=== PATIENT | male | born 2000 | race Caucasian/White ===

== ENCOUNTER 2025-05-11 23:12 | Emergency (ER) | payer MEDICAID ==
[~2025-05-11] VITALS: Ht 172.7 cm; Wt 61.4 kg
[2025-05-11 23:27] VITALS: TEMP 97.5
[2025-05-12 00:52] LABS: GLUCOMETER DEV NAME(LOC) ER.7; GLUCOSE,POINT OF CARE 247 MG/DL (70-110)
[2025-05-12 00:54] LABS: BASOPHILS % (AUTO) 0.5 % (0.0-2.0); EOSINOPHILS % (AUTO) 0.8 % (1.0-6.0); HEMATOCRIT 40.2 % (41-53); HEMOGLOBIN 13.4 g/dL (13.5-17.5); LYMPHOCYTES # (AUTO) 2.1 K/uL (1.0-4.8); LYMPHOCYTES % (AUTO) 26.1 % (22.0-44.0); MEAN CORPUSCULAR HEMOGLOBIN 30.2 pg (26.0-34.0); MEAN CORPUSCULAR HGB CONC 33.4 G/dL (31.0-37.0); MEAN CORPUSCULAR VOLUME 91 fL (80-100); MONOCYTES # (AUTO) 0.4 K/uL (0.1-1.0); MONOCYTES % (AUTO) 4.7 % (2.0-9.0); NEUTROPHILS # (AUTO) 5.4 K/uL (1.8-7.7); NEUTROPHILS % (AUTO) 67.9 % (40.0-70.0); PLATELET COUNT (AUTO) 201 K/uL (150-450); RED BLOOD CELL COUNT(AUTO) 4.44 MIL/uL (4.50-5.90); RED CELL DISTRIBUTION WIDTH 13.3 % (11.5-14.5)
[2025-05-12 01:01] LABS: ANION GAP 6 mmol/L (8-16); CALCIUM, TOTAL 8.5 mg/dL (8.8-10.5); CARBON DIOXIDE 28 mmol/L (22-29); CHLORIDE 102 mmol/L (98-107); CREATININE 0.73 mg/dL (0.60-1.30); GLOMERULAR FILTR. RATE CALC > 60 mL/min (>60); GLUCOSE,RANDOM 262 mg/dL (70-110); POTASSIUM 4.1 mmol/L (3.5-5.1); SODIUM SERUM 136 mmol/L (136-145); UREA NITROGEN, BLOOD 16 mg/dL (7-18)
[2025-05-12 01:11] LABS: ALBUMIN 3.6 g/dL (3.4-5.0); BILIRUBIN,DIRECT 0.1 mg/dL (0.00-0.20); BILIRUBIN,TOTAL 0.4 mg/dL (0.1-1.0); TOTAL PROTEIN, SERUM 6.6 g/dL (6.4-8.2)
[2025-05-12 02:01] LABS: APPEARANCE,URINE CLEAR (CLEAR); BILIRUBIN,URINE NEGATIVE (NEGATIVE); COLOR,URINE LIGHT YELLOW (YELLOW); GLUCOSE, URINE (UA) >=1000 mg/dL (NEGATIVE); LEUKOCYTE ESTERASE ,URINE NEGATIVE (NEGATIVE); NITRATE,URINE NEGATIVE (NEGATIVE); OCCULT BLOOD,URINE NEGATIVE (NEGATIVE); PH,URINE 6.5 (5.0-8.0); PROTEIN,URINE NEGATIVE (NEGATIVE); SPECIFIC GRAVITIY, URINE 1.047 (1.003-1.030); UROBILINOGEN,URINE <=1.0 mg/dL (<=1.0)
[2025-05-12 02:02] LABS: BACTERIA,URINE None Seen /HPF (None Seen); RBC,URINE None Seen /HPF (0-2); SQUAMOUS EPITHELIAL CELL,UR Rare /LPF (None Seen); WBC,URINE None Seen /HPF (0-5)
[2025-05-12 03:18] VITALS: BP 94/46; PULSE 54; RESP 17; O2SAT 97
[2025-05-12] MEDS ORDERED: POLY17PO62 PO (04:36)
== END 2025-05-12 06:46 | disposition home or self-care (01) ==
LOC: EMS 23:12
DX: R11.2 Nausea with vomiting, unspecified (principal); K59.00 Constipation, unspecified; E11.9 Type 2 diabetes mellitus without complications; E78.00 Pure hypercholesterolemia, unspecified; F17.210 Nicotine dependence, cigarettes, uncomplicated; F15.90 Other stimulant use, unspecified, uncomplicated
CPT/HCPCS: 74018; 80048; 80076; 81001; 82962; 83690; 85025; 99284; 36415-L1; 36415-TC

== ENCOUNTER 2025-06-16 22:06 | Emergency (ER) | payer MEDICAID ==
[~2025-06-16] VITALS: Ht 175.3 cm; Wt 76.4 kg
[~2025-06-16 22:06] MED LIST: POLY17PO62 PO
[2025-06-16 22:20] VITALS: TEMP 97.805264
[2025-06-16] MEDS: RINGERS SOLUTION,LACTATED 1,000 ML IV ONE (22:41)
[2025-06-16 22:42] LABS: APPEARANCE,URINE CLEAR (CLEAR); GLUCOSE, URINE (UA) >=1000 mg/dL (NEGATIVE); LEUKOCYTE ESTERASE ,URINE NEGATIVE (NEGATIVE); NITRATE,URINE NEGATIVE (NEGATIVE); OCCULT BLOOD,URINE NEGATIVE (NEGATIVE); SPECIFIC GRAVITIY, URINE 1.032 (1.003-1.030)
[2025-06-16 22:57] LABS: SQUAMOUS EPITHELIAL CELL,UR Rare /LPF (None Seen)
[2025-06-16 23:13] LABS: PLATELET COUNT (AUTO) 162 K/uL (150-450); RED BLOOD CELL COUNT(AUTO) 3.69 MIL/uL (4.50-5.90); RED CELL DISTRIBUTION WIDTH 13.3 % (11.5-14.5); WHITE BLOOD COUNT (AUTO) 6.4 K/uL (4.5-11.0)
[2025-06-16 23:26] LABS: CALCIUM, TOTAL 8.3 mg/dL (8.8-10.5); CREATININE 0.93 mg/dL (0.60-1.30); GLOMERULAR FILTR. RATE CALC > 60 mL/min (>60); SODIUM SERUM 132 mmol/L (136-145); UREA NITROGEN, BLOOD 14 mg/dL (7-18)
[2025-06-16 23:37] LABS: ACETONE,BLOOD 1:4 (NEGATIVE)
[2025-06-16 23:44] LABS: GLUCOSE,RANDOM 798 mg/dL (70-110)
[2025-06-16 23:51] LABS: GLUCOMETER DEV NAME(LOC) ERT.7; GLUCOSE,POINT OF CARE > 600 MG/DL (70-110)
[2025-06-17] MEDS: RINGERS SOLUTION,LACTATED 1,000 ML IV ONE (00:09)
[2025-06-17] MEDS: INSULIN LISPRO 100 UNITS/ML SQ ONE (00:12)
[2025-06-17] MEDS: INSULIN GLARGINE,HUM.REC.ANLOG 100 UNITS/ML SQ ONE (00:13)
[2025-06-17 01:50] LABS: GLUCOMETER DEV NAME(LOC) ERT.7; GLUCOSE,POINT OF CARE 484 MG/DL (70-110)
[2025-06-17 02:56] LABS: GLUCOMETER DEV NAME(LOC) ERT.7; GLUCOSE,POINT OF CARE 303 MG/DL (70-110)
[2025-06-17 03:18] LABS: CALCIUM, TOTAL 8.5 mg/dL (8.8-10.5); CREATININE 0.70 mg/dL (0.60-1.30); GLOMERULAR FILTR. RATE CALC > 60 mL/min (>60); GLUCOSE,RANDOM 306 mg/dL (70-110); SODIUM SERUM 139 mmol/L (136-145); UREA NITROGEN, BLOOD 13 mg/dL (7-18)
[2025-06-17 04:23] VITALS: BP 108/74; PULSE 60; RESP 16; O2SAT 98
[2025-06-17 04:35] LABS: GLUCOMETER DEV NAME(LOC) ERT.7; GLUCOSE,POINT OF CARE 277 MG/DL (70-110)
== END 2025-06-17 05:06 | disposition home or self-care (01) ==
LOC: EMS 22:09
DX: E11.65 Type 2 diabetes mellitus with hyperglycemia (principal); E78.00 Pure hypercholesterolemia, unspecified; F17.210 Nicotine dependence, cigarettes, uncomplicated; F15.90 Other stimulant use, unspecified, uncomplicated; F11.90 Opioid use, unspecified, uncomplicated; Z79.899 Other long term (current) drug therapy
CPT/HCPCS: 99284; 96361; 96360; 80048; 81001; 82009; 82962; 83690; 85025; 36415; 93005; 96372; 82948; J7120 ×2; J7030; J1815

== ENCOUNTER 2025-07-01 18:03 | Inpatient (IN) | payer BC, MEDICAID ==
[~2025-07-01] VITALS: Ht 172.7 cm; Wt 68.0 kg
[2025-07-01] MEDS: SODIUM CHLORIDE 0.9% 1,000 ML IV ONE (18:22)
[2025-07-01 18:41] LABS: PLATELET COUNT (AUTO) 209 K/uL (150-450); RED BLOOD CELL COUNT(AUTO) 4.09 MIL/uL (4.50-5.90); RED CELL DISTRIBUTION WIDTH 13.8 % (11.5-14.5); WHITE BLOOD COUNT (AUTO) 9.4 K/uL (4.5-11.0)
[2025-07-01] MEDS: LevETIRAcetam 1,000 MG in DEXTROSE 5%-WATER 100 ML IV ONE (18:52)
[2025-07-01 18:59] LABS: CALCIUM, TOTAL 8.9 mg/dL (8.8-10.5); CREATININE 0.98 mg/dL (0.60-1.30); GLOMERULAR FILTR. RATE CALC > 60 mL/min (>60); SODIUM SERUM 130 mmol/L (136-145); UREA NITROGEN, BLOOD 17 mg/dL (7-18)
[2025-07-01 19:01] LABS: ASPARTATE AMINOTRANSFERASE 10 U/L (15-37); CREATINE KINASE, TOTAL ONLY 46 U/L (39-308); TOTAL PROTEIN, SERUM 6.4 g/dL (6.4-8.2)
[2025-07-01 19:03] LABS: TROPONIN I-HIGH SENSITIVITY Less Than 4 ng/L (<76)
[2025-07-01 19:14] LABS: GLUCOSE,RANDOM 780 mg/dL (70-110)
[2025-07-01 19:20] LABS: APPEARANCE,URINE CLEAR (CLEAR); GLUCOSE, URINE (UA) >=1000 mg/dL (NEGATIVE); LEUKOCYTE ESTERASE ,URINE NEGATIVE (NEGATIVE); NITRATE,URINE NEGATIVE (NEGATIVE); OCCULT BLOOD,URINE NEGATIVE (NEGATIVE); SPECIFIC GRAVITIY, URINE 1.032 (1.003-1.030)
[2025-07-01 19:22] LABS: ACETONE,BLOOD TRACE (NEGATIVE)
[2025-07-01] MEDS: INSULIN REGULAR, HUMAN 100 UNITS/ML IVP ONE (19:53)
[2025-07-01] MEDS ORDERED: QUET25TA PO (22:25)
[2025-07-01] MEDS ORDERED: METF-81 PO (22:26)
[2025-07-01 22:30] LABS: CALCIUM, TOTAL 8.9 mg/dL (8.8-10.5); CREATININE 1.05 mg/dL (0.60-1.30); GLOMERULAR FILTR. RATE CALC > 60 mL/min (>60); SODIUM SERUM 130 mmol/L (136-145); UREA NITROGEN, BLOOD 16 mg/dL (7-18)
[2025-07-01] MEDS ORDERED: ONDANSETRON HCL 4 MG/2 ML VIAL IVP PRN (22:30)
[2025-07-01] MEDS ORDERED: BACLOFEN 10 MG TABLET PO PRN (22:30)
[2025-07-01] MEDS ORDERED: DICYCLOMINE HCL 10 MG CAPSULE PO PRN (22:30)
[2025-07-01] MEDS ORDERED: ACETAMINOPHEN 325 MG TABLET PO PRN ×2 (22:30)
[2025-07-01] MEDS ORDERED: HYDROCODONE/ACETAMINOPHEN 5-325 MG TABLET PO PRN (22:30)
[2025-07-01] MEDS ORDERED: IPRATROPIUM BROMIDE 0.5 MG/2.5 ML NEB SOLUTION NEB PRN (22:30)
[2025-07-01] MEDS ORDERED: MAG HYDROX/ALUMINUM HYD/SIMETH ES 30 ML SUSPENSION UDCUP PO PRN (22:30)
[2025-07-01] MEDS ORDERED: MAGNESIUM HYDROXIDE SUSPENSION 30 ML UDCUP PO PRN (22:30)
[2025-07-01] MEDS ORDERED: ZOLPIDEM TARTRATE 5 MG TABLET PO PRN (22:30)
[2025-07-01] MEDS ORDERED: PROMETHAZINE HCL 25 MG TABLET PO PRN (22:30)
[2025-07-01] MEDS ORDERED: DEXTROSE 50%-WATER 25 GM/50 ML SYRINGE IVP PRN (22:30)
[2025-07-01] MEDS ORDERED: IBUPROFEN 600 MG TABLET PO PRN (22:30)
[2025-07-01] MEDS ORDERED: LOPERAMIDE HCL 2 MG/15 ML SUSPENSION UDCUP PO PRN (22:30)
[2025-07-01] MEDS ORDERED: ALBUTEROL SULFATE 2.5 MG/0.5 ML NEB SOLUTION NEB PRN (22:30)
[2025-07-01] MEDS ORDERED: MORPHINE SULFATE 2 MG/ML SYRINGE IVP PRN (22:30)
[2025-07-01] MEDS ORDERED: BISACODYL 10 MG RECTAL RECTAL SUPPOSITORY PR PRN (22:30)
[2025-07-01] MEDS ORDERED: INSU100C6 SQ (22:31)
[2025-07-01 22:32] LABS: ASPARTATE AMINOTRANSFERASE 11 U/L (15-37); TOTAL PROTEIN, SERUM 6.5 g/dL (6.4-8.2)
[2025-07-01] MEDS: SODIUM CHLORIDE 0.9% 1,000 ML IV SCH (22:36)
[2025-07-01 22:41] LABS: GLUCOSE,RANDOM 792 mg/dL (70-110)
[2025-07-01] MEDS: HEPARIN SODIUM,PORCINE 5,000 UNITS/ML VIAL SQ SCH (23:06)
[2025-07-01 23:08] LABS: CALCIUM, TOTAL 8.7 mg/dL (8.8-10.5); CREATININE 0.60 mg/dL (0.60-1.30); GLOMERULAR FILTR. RATE CALC > 60 mL/min (>60); GLUCOSE,RANDOM 327 mg/dL (70-110); SODIUM SERUM 137 mmol/L (136-145); UREA NITROGEN, BLOOD 13 mg/dL (7-18)
[2025-07-02] VITALS: BP 103/67; PULSE 58; RESP 18; TEMP 97.5; O2SAT 100
[2025-07-02 00:23] VITALS: BP 103/67; PULSE 58; RESP 18; TEMP 97.5; O2SAT 100
[2025-07-02 04:00] VITALS: BP 105/70; PULSE 57; RESP 18; TEMP 97.7; O2SAT 98
[2025-07-02 04:29] VITALS: BP 105/70; PULSE 57; RESP 18; TEMP 97.7; O2SAT 98
[2025-07-02] MEDS: INSULIN LISPRO 100 UNITS/ML SQ PRN (05:50)
[2025-07-02 06:32] LABS: PLATELET COUNT (AUTO) 211 K/uL (150-450); RED BLOOD CELL COUNT(AUTO) 4.22 MIL/uL (4.50-5.90); RED CELL DISTRIBUTION WIDTH 13.7 % (11.5-14.5); WHITE BLOOD COUNT (AUTO) 9.5 K/uL (4.5-11.0)
[2025-07-02 06:44] LABS: CALCIUM, TOTAL 9.0 mg/dL (8.8-10.5); CREATININE 0.75 mg/dL (0.60-1.30); GLOMERULAR FILTR. RATE CALC > 60 mL/min (>60); GLUCOSE,RANDOM 375 mg/dL (70-110); SODIUM SERUM 137 mmol/L (136-145); UREA NITROGEN, BLOOD 11 mg/dL (7-18)
[2025-07-02] MEDS ORDERED: PANTOPRAZOLE SODIUM 40 MG DR TABLET PO SCH (09:00)
[2025-07-02 09:41] LABS: GLUCOMETER DEV NAME(LOC) 5S.1D; GLUCOSE,POINT OF CARE 389 MG/DL (70-110)
[2025-07-02] MEDS ORDERED: INSULIN GLARGINE,HUM.REC.ANLOG 100 UNITS/ML SQ SCH (21:00)
== END 2025-07-02 06:47 | disposition left against medical advice (07) | DRG 101 ==
LOC: EMS 18:03 → EDH 20:24 → 5S 23:57
PROVIDERS: ADMIT Hospitalist; ATTEND Hospitalist
DX: R56.9 Unspecified convulsions (principal); I31.9 Disease of pericardium, unspecified; E10.65 Type 1 diabetes mellitus with hyperglycemia; F17.200 Nicotine dependence, unspecified, uncomplicated; Z53.21 Procedure and treatment not carried out due to patient leaving prior to being seen by health care provider; E78.00 Pure hypercholesterolemia, unspecified; Z79.84 Long term (current) use of oral hypoglycemic drugs; Z79.899 Other long term (current) drug therapy; Z91.148 Patient's other noncompliance with medication regimen for other reason
CPT/HCPCS: 70450; 71045; 80048; 80053; 80076; 81001; 82009; 82550; 82948; 82962; 83690; 83735; 83880; 84484; 85025; 93005; 96361; 96365; 96375; 99291; J0712; J1815; J7060; 36415-L1; 36415-TC